=== PATIENT | male | born 1980 | race Caucasian/White ===

== ENCOUNTER → 2016-08-05 | Day surgery (SDC) | payer OTHER ==
[~2016-08-05] MED LIST: ATIVAN PO; CELEXA40 MG PO; CORTISPORIN 1%-10 M1 OT; CYMBALTA30 MG PO; MOTRIN800 MG PO; TOBRADEX 0.1%-0.5 ML OPH; TRAMADOL HCL50 MG PO; TRIMOX500 MG PO; VENLAFAXINE HYD25 MG PO
[2016-08-05 09:55] VITALS: BP 179/90
[2016-08-05 10:46] VITALS: BP 155/94
[2016-08-05 11:01] VITALS: BP 150/102
[2016-08-05 11:27] VITALS: BP 150/102
== END | disposition home or self-care (01) ==
LOC: SDC 07-31 13:15
DX: M16.12 Unilateral primary osteoarthritis, left hip (principal); F41.9 Anxiety disorder, unspecified; F32.9 Major depressive disorder, single episode, unspecified; K21.9 Gastro-esophageal reflux disease without esophagitis; Z91.5 Personal history of self-harm; F17.210 Nicotine dependence, cigarettes, uncomplicated

== ENCOUNTER → 2016-12-15 | Day surgery (SDC) | payer OTHER ==
[~2016-12-15] VITALS: Ht 177.8 cm; Wt 97.5 kg
[~2016-12-15] MED LIST changes: +ADDERALL5 MG PO; +LAMICTAL25 MG PO; +NEURONTIN300 MG PO
--- NOTE | ~2016-12-15 | O ---
[place], [place] OPERATIVE NOTE NAME: ANSHU BALL UNIT #: [id number] ROOM: DOCTOR: BRANNON TURNER DO BIRTHDATE: [birth year] DOS: 12/15/2016 PREOPERATIVE DIAGNOSES: 1. Pain, left hip. 2. Osteoarthritis, left hip. POSTOPERATIVE DIAGNOSES: 1. Pain, left hip. 2. Osteoarthritis, left hip. PROCEDURE: Left hip intra-articular injection under fluoroscopy with arthrogram. ANESTHESIA: MAC. SURGEON: Brannon Turner DO COMPLICATIONS: None. INDICATIONS FOR PROCEDURE: This is a 36-year-old male seen in the office regarding a chronic left hip pain. Please see details of office note regarding additional patient's clinical history, findings and indications for procedure. The patient has advanced osteoarthritis. The patient has left hip osteoarthritis. He has done well in the short term interim from a prior injection. His pain has recurred. He wished to proceed with a repeat injection. Benefits, risks, complications discussed. Informed consent obtained. DESCRIPTION OF PROCEDURE: With the patient being identified and marked, he was taken to the operative suite and positioned supine on a standard radiolucent table. The patient was provided MAC anesthetic by the Department of Anesthesia. Left hip and groin were then prepped and draped in usual sterile fashion. Under image intensification, appropriate site over the anterior left hip, marked and noted and 1% lidocaine was injected in the subcutaneous tissues. An 18-gauge needle then inserted under fluoroscopic guidance into the left hip joint, confirmed with Omnipaque dye. Hip then injected with 4 mL of 0.5 Marcaine and 1 mL 80 mg of Depo-Medrol. Needle withdrawn. Pressure held, bandage applied. The patient tolerated the procedure well and was transferred to his hospital cart in stable condition. [place], [place] OPERATIVE NOTE NAME: ANSHU BALL UNIT #: [id number] ROOM: DOCTOR: BRANNON TURNER DO BIRTHDATE: [birth year] BRANNON TURNER DO CM:OPRECORD:OPERATIVE NOTE [id number] BRANNON TURNER DO 12/15/16 1422 interface
[2016-12-15 10:36] VITALS: BP 127/75
[2016-12-15 10:50] VITALS: BP 128/76
[2016-12-15 11:08] VITALS: BP 137/88
== END | disposition home or self-care (01) ==
LOC: SDC 12-10 08:00
DX: M16.12 Unilateral primary osteoarthritis, left hip (principal); Z85.841 Personal history of malignant neoplasm of brain; F17.210 Nicotine dependence, cigarettes, uncomplicated; Z79.899 Other long term (current) drug therapy; K21.9 Gastro-esophageal reflux disease without esophagitis; F41.9 Anxiety disorder, unspecified; R56.9 Unspecified convulsions; F32.9 Major depressive disorder, single episode, unspecified; Z87.01 Personal history of pneumonia (recurrent); Z91.5 Personal history of self-harm

== ENCOUNTER → 2017-07-24 | Outpatient (CLI) | payer OTHER | END | disposition home or self-care (01) | LOC: RAD 09:47 | DX: M25.551 Pain in right hip (principal); M25.552 Pain in left hip; R07.81 Pleurodynia ==

== ENCOUNTER → 2017-08-06 | Outpatient (CLI) | payer OTHER | END | disposition home or self-care (01) | LOC: RAD 00:42 → SDC 13:00 → EDSTATUS 13:00 | DX: M16.12 Unilateral primary osteoarthritis, left hip (principal) ==

== ENCOUNTER → 2017-12-16 | Outpatient (CLI) | payer MEDICARE | END | disposition home or self-care (01) | LOC: SDC 12-09 11:00 → EDSTATUS 12-09 11:00 | DX: M16.12 Unilateral primary osteoarthritis, left hip (principal); G89.29 Other chronic pain ==

== ENCOUNTER 2020-02-08 19:16 | Emergency (ER) | payer MEDICARE, MEDICAID ==
[~2020-02-08] VITALS: Ht 182.8 cm; Wt 151.5 kg
[2020-02-08 19:57] LABS: BASO % 0.6 % (0.0-1.0); EOS # 0.3 10*3/uL (0.0-0.4); EOS % 4.7 % (1.0-4.0); HEMATOCRIT 52.3 % (42.0-52.0); MEAN CELL VOLUME 99.6 fl (80.0-94.0); MEAN CORPUSCULAR HGB 33.1 pg (27.0-31.0); MEAN CORPUSCULAR HGB CONC 33.3 g/dl (33.0-37.0); MEAN PLATELET VOLUME 9.7 fl (9.6-12.3); MONO # 0.6 10*3/uL (0.1-1.0); MONO % 8.3 % (3.0-9.0); NEUT # 4.8 10*3/uL (2.3-7.9); PLATELET COUNT AUTOMATED 241 10*3/uL (130-400); RED BLOOD COUNT 5.25 10*6/uL (4.50-5.90); RED CELL DISTRI WIDTH 14.8 % (0-14.5); WHITE BLOOD COUNT 6.7 10*3/uL (4.8-10.8)
[2020-02-08 20:06] LABS: INTERNATIONAL NORM RATIO 3.2 (2.0-3.5)
[2020-02-08 20:15] LABS: ALBUMIN 3.5 gm/dl (3.1-4.5); ALKALINE PHOSPHATASE 87 U/L (45-117); BUN 8 mg/dl (7-24); CHLORIDE 105 mmol/L (98-107); CREATININE 0.99 mg/dL (0.70-1.30); POTASSIUM 4.2 mmol/L (3.5-5.1); SGOT/AST 93 IU/L (3-35); SGPT/ALT 130 U/L (12-78); SODIUM 140 mmol/L (136-145); TOTAL PROTEIN 7.8 gm/dL (6.4-8.2)
[2020-02-08 20:53] LABS: BILIRUBIN Negative (Negative); BLOOD Trace-Intact (Negative); CLARITY Cloudy (Clear); COLOR Dark Yellow (Yellow); GLUCOSE Negative (Negative); KETONE Trace (Negative); LEUKO ESTERASE 1+ (Negative); NITRITE Negative (Negative); SPECIFIC GRAVITY 1.025 (1.001-1.030)
[2020-02-08 21:01] LABS: URINE AMPHETAMINES < 1000 (1000ng/ml); URINE BARBITURATES < 200 (200ng/ml); URINE BENZODIAZEPINES < 200 (200ng/ml); URINE CANNABINOIDS (THC) > 50 (50ng/ml); URINE COCAINE < 300 (300ng/ml); URINE METHADONE < 300 (300ng/ml); URINE OPIATES < 300 (300ng/ml)
[2020-02-08 21:02] LABS: URINE PHENCYCLIDINE < 25 (25ng/ml)
[2020-02-08 21:08] LABS: WBC 31-40 wbc/hpf (0-5)
[2020-02-08 21:09] LABS: BACTERIA 2+; RBC 0-2 rbc/hpf (0-2)
[2020-02-09] MEDS ORDERED: ZUBSOLV 8.6-2.1 EACH SL (00:11)
[2020-02-09] MEDS ORDERED: AMLODIPINE BESYL5 MG PO (00:12)
[2020-02-09] MEDS ORDERED: Coumadin3 MG PO (00:14)
[2020-02-09] MEDS ORDERED: NORVASC5 MG PO (00:20)
== END 2020-02-09 17:20 | disposition short-term general hospital (02) ==
LOC: ED 19:16
PROVIDERS: Emergency Medicine
DX: I63.9 Cerebral infarction, unspecified (principal); R56.9 Unspecified convulsions; Z79.899 Other long term (current) drug therapy

== ENCOUNTER 2020-03-07 04:07 | Emergency (ER) | payer MEDICARE, MEDICAID ==
[~2020-03-07] VITALS: Ht 172.7 cm; Wt 115.7 kg
[~2020-03-07 04:07] MED LIST changes: +AMLODIPINE BESYL5 MG PO; +Coumadin3 MG PO; +NORVASC5 MG PO; +ZUBSOLV 8.6-2.1 EACH SL
== END 2020-03-07 08:07 | disposition home or self-care (01) ==
LOC: ED 04:07
DX: M16.12 Unilateral primary osteoarthritis, left hip (principal); Z79.899 Other long term (current) drug therapy; Z79.01 Long term (current) use of anticoagulants

== ENCOUNTER 2020-06-30 03:47 | Observation (INO) | payer MEDICARE, MEDICAID ==
[~2020-06-30] VITALS: Ht 177.8 cm; Wt 133.6 kg
[2020-06-30 03:56] VITALS: BP 151/86
[2020-06-30 06:01] LABS: BASO # 0.1 10*3/uL (0.0-0.1); BASO % 0.6 % (0.0-1.0); EOS # 0.1 10*3/uL (0.0-0.4); EOS % 1.3 % (1.0-4.0); HEMATOCRIT 54.5 % (42.0-52.0); LYMPH # 0.8 10*3/uL (1.3-4.4); LYMPH % 7.4 % (27.0-41.0); MEAN CELL VOLUME 96.1 fl (80.0-94.0); MEAN CORPUSCULAR HGB 32.6 pg (27.0-31.0); MEAN CORPUSCULAR HGB CONC 33.9 g/dl (33.0-37.0); MEAN PLATELET VOLUME 10.3 fl (9.6-12.3); MONO # 0.7 10*3/uL (0.1-1.0); MONO % 6.5 % (3.0-9.0); NEUT # 8.7 10*3/uL (2.3-7.9); NEUT % 82.6 % (47.0-73.0); PLATELET COUNT AUTOMATED 254 10*3/uL (130-400); RED BLOOD COUNT 5.67 10*6/uL (4.50-5.90); RED CELL DISTRI WIDTH 13.9 % (0-14.5); WHITE BLOOD COUNT 10.5 10*3/uL (4.8-10.8)
[2020-06-30 06:04] LABS: ALBUMIN 3.1 gm/dl (3.1-4.5); ALKALINE PHOSPHATASE 74 U/L (45-117); BUN 10 mg/dl (7-24); CHLORIDE 101 mmol/L (98-107); CREATININE 0.92 mg/dL (0.70-1.30); POTASSIUM 3.6 mmol/L (3.5-5.1); SGOT/AST 17 IU/L (3-35); SGPT/ALT 33 U/L (12-78); SODIUM 135 mmol/L (136-145); TOTAL PROTEIN 7.3 gm/dL (6.4-8.2)
[2020-06-30 06:07] LABS: ETHYL ALCOHOL < 3.0 mg/dl (<3); TROPONIN I < 0.015 ng/ml (<0.045)
[2020-06-30 06:29] LABS: INTERNATIONAL NORM RATIO 7.6 (2.0-3.5)
[2020-06-30 06:51] VITALS: BP 116/69
[2020-06-30 07:02] LABS: BILIRUBIN 2+ (Negative); BLOOD Negative (Negative); CLARITY Clear (Clear); COLOR Dark Yellow (Yellow); GLUCOSE Negative (Negative); KETONE 3+ (Negative); LEUKO ESTERASE Trace (Negative); NITRITE Negative (Negative); SPECIFIC GRAVITY >= 1.030 (1.001-1.030)
[2020-06-30 07:14] LABS: BACTERIA 1+; MUCOUS 2+
[2020-06-30 07:54] VITALS: BP 108/68
[2020-06-30 08:25] VITALS: BP 124/73
[2020-06-30 09:50] VITALS: BP 118/71
== END 2020-06-30 10:30 | disposition short-term general hospital (02) ==
LOC: ED 03:47 → EDHOLD 06:50 → 5E 08:04
PROVIDERS: Emergency Medicine; ADMIT Internal Medicine; ATTEND Internal Medicine
DX: T45.511A Poisoning by anticoagulants, accidental (unintentional), initial encounter (principal); R07.89 Other chest pain; I61.9 Nontraumatic intracerebral hemorrhage, unspecified; R79.1 Abnormal coagulation profile; D64.9 Anemia, unspecified; R90.89 Other abnormal findings on diagnostic imaging of central nervous system; D49.6 Neoplasm of unspecified behavior of brain; R56.9 Unspecified convulsions; I10 Essential (primary) hypertension; F17.210 Nicotine dependence, cigarettes, uncomplicated; Z79.01 Long term (current) use of anticoagulants